=== PATIENT | male | born 1985 | race Two or more races ===

== ENCOUNTER 2023-12-16 17:03 | Emergency (ER) | payer OTHER ==
[~2023-12-16] VITALS: Ht 188 cm; Wt 81.8 kg
[2023-12-16 17:10] VITALS: BP 117/80; PULSE 105; RESP 16; O2SAT 98
== END 2023-12-16 19:25 | disposition left against medical advice (07) ==
LOC: EDBD 17:03 → ER 17:03
DX: R53.1 Weakness (principal); Z53.21 Procedure and treatment not carried out due to patient leaving prior to being seen by health care provider

== ENCOUNTER 2023-12-18 13:18 | Emergency (ER) | payer OTHER ==
[~2023-12-18] VITALS: Ht 185.4 cm; Wt 75.0 kg
[2023-12-18 13:58] VITALS: BP 128/77; PULSE 100; RESP 16; TEMP 98.1; O2SAT 99
[2023-12-18] MEDS ORDERED: IBUP-1456 PO (14:55)
[2023-12-18] MEDS ORDERED: CEPH500C PO (14:55)
== END 2023-12-18 15:02 | disposition home or self-care (01) ==
LOC: ER 13:18 → EDBD 13:18 → ER 14:57
DX: S62.644A Nondisplaced fracture of proximal phalanx of right ring finger, initial encounter for closed fracture (principal); L60.0 Ingrowing nail; X58.XXXA Exposure to other specified factors, initial encounter; Y93.89 Activity, other specified; Y92.89 Other specified places as the place of occurrence of the external cause; Y99.8 Other external cause status
CPT/HCPCS: 29130; 73130

== ENCOUNTER 2023-12-19 10:00 | Emergency (ER) | payer OTHER ==
[~2023-12-19] VITALS: Ht 170.2 cm; Wt 75.0 kg
[~2023-12-19 10:00] MED LIST: CEPH500C PO; IBUP-1456 PO
[2023-12-19 10:39] VITALS: BP 115/72; PULSE 87; RESP 18; TEMP 97.8; O2SAT 97
== END 2023-12-19 11:04 | disposition home or self-care (01) ==
LOC: EDBD 10:00 → ER 10:00
DX: L60.0 Ingrowing nail (principal); F41.9 Anxiety disorder, unspecified; F17.210 Nicotine dependence, cigarettes, uncomplicated; F19.10 Other psychoactive substance abuse, uncomplicated; Z88.6 Allergy status to analgesic agent; Z59.00 Homelessness unspecified